=== PATIENT | female | born 1985 | race Caucasian/White ===

== ENCOUNTER 2018-01-01 16:50 | Emergency (ER) | payer OTHER ==
--- NOTE | 2018-01-01 17:33 | PDOC ---
Rapid Medical Evaluation Time Seen by Provider: 01/01/18 17:27 Medical Evaluation: 01/01/18 17:31 I have performed a brief in-person evaluation of this patient. The patient presents with a chief complaint of: throat discomfort x 3 months. Patient reports pressure in throat sinuses and left ear. Denies discomfort with swallowing, denies coughing Pertinent physical exam findings are: NAD HEENT: non enlarged tonsils, on erythema even and unlabored breathing I have ordered the following: The patient will proceed to the ED for further evaluation. 01/01/18 17:33
[2018-01-01 17:35] VITALS: BP 120/78; PULSE 117; TEMP 99; BMI 27.4
--- NOTE | 2018-01-01 18:14 | PDOC ---
History of Present Illness - General Chief Complaint: Cold Symptoms Stated Complaint: NECK LUMP AND PAIN Time Seen by Provider: 01/01/18 17:27 - History of Present Illness Initial Comments: 32-year-old female presents for evaluation of neck pain 3 months and facial congestion 1 month. No associated fever chills or night sweats no systemic symptoms. She has no comorbidities. 01/01/18 18:10 Past History - Past Medical History Allergies/Adverse Reactions: Allergies Allergy/AdvReac Type Severity Reaction Status Date / Time No Known Allergies Allergy Verified 01/01/18 17:33 Home Medications: Ambulatory Orders Amox-Tr/K Cl [Augmentin - 875Mg Tablet] 1 tab PO BID #28 tablet 01/01/18 Budesonide [Rhinocort Allergy] 1 spray NS ONCE #1 spray.pump 01/01/18 COPD: No - Suicide/Smoking/Psychosocial Hx Smoking History: Never smoked Hx Alcohol Use: No Drug/Substance Use Hx: No Review of Systems - Review of Systems Constitutional: Yes: See HPI HEENTM: Yes: See HPI All Other Systems: Reviewed and Negative *Physical Exam - Vital Signs Last Vital Signs Temp Pulse Resp BP Pulse Ox 99 F 117 H 18 120/78 99 01/01/18 17:33 01/01/18 17:33 01/01/18 17:33 01/01/18 17:33 01/01/18 17:33 - Physical Exam Comments: HEAD: NC/AT EYES: Conjuntiva clear Ears: Canals and TM's normal NOSE: Injected with swollen turbinates and clear discharge THROAT: Moist mucous membrances, oral pharanx clear, uvula midline NECK: Supple posterior cervical chain adenopathy on the left CARDIAC: S1 S2 LUNGS: CTA Full and Equal breath sounds ABDOMEN: Soft NT ND MS: Full ROM in all joints without edema NEUROLOGIC: No gross sensory or motor deficits, NVID SKIN: Normal color and temperature no lesions or rashes 01/01/18 18:11 Medical Decision Making - Medical Decision Making Sinusitis I will treat with Augmentin and have her follow-up with ENT 01/01/18 18:11 *DC/Admit/Observation/Transfer Diagnosis at time of Disposition: Sinusitis - Discharge Dispostion Disposition: HOME Condition at time of disposition: Stable Decision to Admit order: No - Prescriptions Prescriptions: Amox-Tr/K Cl [Augmentin - 875Mg Tablet] 1 tab PO BID #28 tablet - Referrals Referrals: Haresh Chapman MD [Staff Physician] - - Patient Instructions Printed Discharge Instructions: Sinusitis, DI for Sinusitis Additional Instructions: Regrese a la eugenio de emergencias si los sntomas empeoran o no se resuelven. Por favor, otoniel un seguimiento con hooper mdico de nariz y garganta en gonzales o dos salgado para polly evaluacin adicional y opciones de tratamiento. Le he administrado un curso de 14 salgado de antibiticos que debe completar, as kaci un spray nasal que le ayud a sentir dolor en la audrey. return to the emergency room should symptoms worsen or go unresolved. Please follow-up with your nose and throat doctor in one to 2 days for further evaluation and treatment options. I have given you a 14 day course of antibiotics which she must complete as well as a nasal spray which helped her pain in her face. Print Language: LATVIAN - Post Discharge Activity
== END 2018-01-01 18:16 | disposition home or self-care (01) ==
LOC: JERFT 16:50
DX: J32.9 Chronic sinusitis, unspecified (principal)
CPT/HCPCS: 99281-25

== ENCOUNTER 2019-11-02 08:59 | Emergency (ER) | payer OTHER ==
[2019-11-02 09:04] VITALS: BMI 27.8
[2019-11-02 10:15] VITALS: TEMP 98.1
[2019-11-02] MEDS ORDERED: KETOROLAC TROMETHAMINE 60 MG/2 ML VIAL IM ONE (10:16)
[2019-11-02] MEDS ORDERED: KETOROLAC TROMETHAMINE 60 MG/2 ML VIAL ONE ×2 (10:21→10:34)
--- NOTE | 2019-11-02 10:53 | PDOC ---
History of Present Illness - General Chief Complaint: Pain Stated Complaint: LFT SIDED ABD PAIN Time Seen by Provider: 11/02/19 09:39 History Source: Patient Exam Limitations: No Limitations - History of Present Illness Initial Comments: 11/02/19 10:48 34-year-old female presents to ED with complaints of pain to her left rib area since yesterday afternoon patient denies injury to the affected area denies difficulty breathing, chest pain, cough. Patient also denies rash. Patient denies smoking history, recent travel or exogenous estrogen usage. Is this a multiple visit Asthma Patient?: No Timing/Duration: 24 hours Severity: mild Past History - Travel History Traveled outside of the country in the last 30 days: No Close contact w/someone who was outside of country & ill: No - Medical History Allergies/Adverse Reactions: Allergies Allergy/AdvReac Type Severity Reaction Status Date / Time No Known Allergies Allergy Verified 11/02/19 09:03 Home Medications: Ambulatory Orders Amox-Tr/K Cl [Augmentin - 875Mg Tablet] 1 tab PO BID #28 tablet 01/01/18 Budesonide [Rhinocort Allergy] 1 spray NS ONCE #1 spray.pump 01/01/18 COPD: No - Reproductive History Is Patient Now?: No - Psycho-Social/Smoking History Patient Lives Alone: No Lives with/in: spouse/SO Smoking History: Never smoked - Substance Abuse Hx (Audit-C & DAST Scrn) How often the patient has a drink containing alcohol: Never Score: In Men: 4 or > Positive; In Women: 3 or > Positive: 0 Screen Result (Pos requires Nsg. Audit-10AR): Negative Review of Systems - Review of Systems Able to Perform ROS?: Yes Constitutional: No: Symptoms Reported HEENTM: No: Symptoms Reported Respiratory: No: Symptoms reported Cardiac (ROS): No: Symptoms Reported ABD/GI: No: Symptoms Reported : No: Symptoms Reported Musculoskeletal: Yes: Joint Pain (Left ribs) Integumentary: No: Symptoms Reported Neurological: No: Symptoms reported Hematologic/Lymphatic: No: Symptoms Reported *Physical Exam - Vital Signs Last Vital Signs Temp Pulse Resp BP Pulse Ox 98.1 F 102 H 20 120/72 100 11/02/19 10:14 11/02/19 10:14 11/02/19 10:14 11/02/19 10:14 11/02/19 10:14 - Physical Exam General Appearance: Yes: Nourished, Appropriately Dressed. No: Apparent Distress HEENT: negative: Pale Conjunctivae Neck: positive: Supple Respiratory/Chest: positive: Chest Tender (Left mid axillary line 4th-9th rib), Lungs Clear, Normal Breath Sounds. negative: Respiratory Distress, Accessory Muscle Use Cardiovascular: positive: Regular Rhythm, Regular Rate. negative: Murmur Gastrointestinal/Abdominal: positive: Soft. negative: Tenderness Musculoskeletal: positive: Normal Inspection Integumentary: positive: Normal Color, Warm, Moist. negative: Rash Neurologic: positive: Normal Mood/Affect, Motor Strength 5/5 (ambulatory) ED Treatment Course - RADIOLOGY Radiology Studies Ordered: Category Date Time Status CHEST X-RAY PORTABLE* [RAD] Stat Radiology 11/02/19 10:16 Completed RIBS-LEFT SIDE [RAD] Stat Radiology 11/02/19 10:16 Completed - Medications Given in the ED: ED Medications Discontinued Medications Generic Name Dose Route Start Last Admin Trade Name Freq PRN Reason Stop Dose Admin Ketorolac Tromethamine 60 mg 11/02/19 10:16 11/02/19 10:35 Toradol Injection - IM 11/02/19 10:17 60 mg ONCE ONE Administration Medical Decision Making - Medical Decision Making 11/02/19 10:52 Chief complaint: Patient with left ear pain since yesterday without specific injury. Patient states pain is worsened with movement and deep breathing but denies any shortness of breath, palpitations, or cough. Patient denies recent illness or recent travel. exam: Patient reproducible pain to the mid axillary line at the fourth rib extending to the ninth rib without visible abnormalities or crepitus Plan: EKG, chest x-ray, rib x-ray along with Toradol IM 11/02/19 12:23 Chest x-ray essentially negative. Patient states feeling better after receiving Toradol. Lab x-ray shows density to the fourth rib recommending CT patient sent for chest CT without contrast 11/02/19 14:47 CT of the chest shows a 2 mm calcified left lower lobe granuloma with no other abnormalities noted. Recommend a nonemergent outpatient MRI. Patient will be given prescription for Percocet to help with her pain which is likely muscle skeletal and will take Motrin 600 mg during the day as needed Discharge - Discharge Information Problems reviewed: Yes Clinical Impression/Diagnosis: Rib pain on left side Condition: Good Disposition: HOME - Follow up/Referral - Patient Discharge Instructions Patient Printed Discharge Instructions: DI for Musculoskeletal Pain Additional Instructions: Take 600 mg of Motrin during the day as needed every 8 hours for pain. Do not do movements that trigger discomfort. For severe pain you may take a Percocet for discomfort. If symptoms continue greater than 1 week consider returning to the ED or following up with your primary care physician. Also recommended on CT to have a nonemergent outpatient MRI performed for density seen in the left lower lobe - Post Discharge Activity
[2019-11-02 17:12] VITALS: BP 115/65; PULSE 100
--- NOTE | 2019-11-02 17:53 | EKG ---
Test Reason : Blood Pressure : / mmHG Vent. Rate : 102 BPM Atrial Rate : 102 BPM P-R Int : 150 ms QRS Dur : 076 ms QT Int : 344 ms P-R-T Axes : 051 047 026 degrees QTc Int : 448 ms SINUS TACHYCARDIA LEFT ATRIAL ENLARGEMENT NONSPECIFIC ST ABNORMALITY BORDERLINE ECG NO PREVIOUS ECGS AVAILABLE Confirmed by MD LAY, AYUSH ([id number]) on 11/02/2019 5:53:15 PM Referred By: Confirmed By:AYUSH CHUN MD
== END 2019-11-02 15:30 | disposition home or self-care (01) ==
LOC: JER 08:59
PROC: 3E0233Z Introduction of Anti-inflammatory into Muscle, Percutaneous Approach (ICD-10-PCS; principal; 2019-11-02)
DX: R07.82 Intercostal pain (principal)
CPT/HCPCS: 71045-TC-FY; 71101-TC-LT-FY; 71250-TC; 93005; 93010; 99285-25

== ENCOUNTER 2020-12-26 23:01 | Emergency (ER) | payer OTHER ==
[2020-12-26 23:08] VITALS: BP 122/83; PULSE 134; TEMP 97.6; BMI 30.7
[2020-12-27 01:46] LABS: BASO % 0.2 % (0-2.0); EOS % 0.2 % (0-4.5); HEMATOCRIT 35.4 % (32.4-45.2); LYMPH % 18.6 % (8-40); MCH 31.7 pg (25.7-33.7); MCHC 33.7 g/dl (32.0-36.0); MEAN PLT VOLUME 8.4 fl (7.5-11.1); PLATELET COUNT 216 10^3/uL (134-434); RBC 3.77 M/mm3 (3.60-5.2); RDW 12.7 % (11.6-15.6); WHITE BLOOD COUNT 7.9 K/mm3 (4.0-10.0)
[2020-12-27 02:01] LABS: ALBUMIN 3.2 g/dl (3.4-5.0); CALCIUM 8.8 mg/dL (8.5-10.1)
[2020-12-27 02:02] LABS: BLOOD UREA NITROGEN 10.2 mg/dL (7-18)
[2020-12-27 02:05] LABS: CREATININE 0.7 mg/dL (0.55-1.3)
[2020-12-27 02:06] LABS: TOT PROT 6.8 g/dl (6.4-8.2)
== END 2020-12-27 03:40 ==
LOC: JER 23:01
DX: T81.89XA Other complications of procedures, not elsewhere classified, initial encounter (principal)
CPT/HCPCS: 36415; 80053; 85025; 86850; 86900; 86901; 99283-25